=== PATIENT | male | born 1955 ===

== ENCOUNTER 2024-11-21 00:42 | Outpatient (CLI) | payer OTHER, SELFPAY ==
[2024-11-21 14:51] LABS: Abs Immature Grans 0.03 10^3/uL (0.0-0.06); Absolute Basophil Count 0.06 10^3/uL (0.0-0.2); Absolute Eosinophil Count 0.08 10^3/uL (0.0-0.7); Absolute Lymphocyte Count 1.64 10^3/uL (1.2-3.4); Absolute Monocyte Count 0.77 10^3/uL (0.1-0.8); Absolute Neutrophil Count 7.06 10^3/uL (1.2-6.7); Basophils % 0.6 %; Eosinophils % 0.8 %; HCT 37.6 % (40.0-50.0); HGB 12.2 g/dL (13.5-17.5); Immature Grans % 0.3 %; MCH 24.9 pg (27.0-33.0); MCHC 32.4 % (32.0-36.0); MCV 77 fL (80-95); MPV 9.5 fL (8.0-11.0); Neutrophils % 73.3 %; Platelet Count 296 10^3/uL (130-400); RDW 15.9 % (11.8-14.1); RDW-SD 43.7 fL; WBC 9.64 10^3/uL (4.4-10.8)
[2024-11-21 15:07] LABS: ALT 23 U/L (16-63); AST 18 U/L (15-37); Albumin 3.9 g/dL (3.4-5.0); Alkaline Phosphatase 124 U/L (46-116); Anion Gap 7.2 mmol/L (3-11); BUN 18 mg/dL (7-18); Bilirubin, Total 0.4 mg/dL (0.2-1.0); CO2 31.8 mmol/L (21.0-32.0); CREATININE 0.8 mg/dL (0.70-1.30); Calcium 9.4 mg/dL (8.5-10.1); Chloride 104 mmol/L (98-107); Estimated GFR 95.21 (mL/min/1.73m2); Glucose 100 mg/dL (74-106); Potassium 4.1 mmol/L (3.5-5.1); Sodium 143 mmol/L (136-145)
== END 2024-11-21 00:43 | disposition home or self-care (01) ==
LOC: LBO 00:42
PROVIDERS: PCP Internal Medicine; Visit Provider Internal Medicine Medical Oncology
DX: C15.5 Malignant neoplasm of lower third of esophagus (principal)
CPT/HCPCS: 36415; 80053; 83735; 85025

== ENCOUNTER 2024-11-29 01:53 | Outpatient (CLI) | payer OTHER, SELFPAY ==
[2024-11-29 10:12] LABS: Abs Immature Grans 0.07 10^3/uL (0.0-0.06); Absolute Basophil Count 0.04 10^3/uL (0.0-0.2); Absolute Eosinophil Count 0.09 10^3/uL (0.0-0.7); Absolute Lymphocyte Count 0.96 10^3/uL (1.2-3.4); Absolute Monocyte Count 0.34 10^3/uL (0.1-0.8); Absolute Neutrophil Count 5.58 10^3/uL (1.2-6.7); Basophils % 0.6 %; Eosinophils % 1.3 %; HGB 12.1 g/dL (13.5-17.5); Lymphocytes % 13.6 %; MCH 25.1 pg (27.0-33.0); MCHC 32.7 % (32.0-36.0); MCV 77 fL (80-95); MPV 10.1 fL (8.0-11.0); Monocytes % 4.8 %; Neutrophils % 78.7 %; Platelet Count 305 10^3/uL (130-400); RBC 4.83 10^6/uL (4.36-5.78); RDW-SD 41.1 fL; WBC 7.08 10^3/uL (4.4-10.8)
[2024-11-29 10:40] LABS: BUN 14 mg/dL (7-18); CREATININE 0.8 mg/dL (0.70-1.30); Calcium 9.8 mg/dL (8.5-10.1); Glucose 99 mg/dL (74-106)
[2024-11-29 10:41] LABS: ALT 20 U/L (16-63); AST 16 U/L (15-37); Albumin 3.8 g/dL (3.4-5.0); Alkaline Phosphatase 118 U/L (46-116); Anion Gap 5.1 mmol/L (3-11); Bilirubin, Total 0.6 mg/dL (0.2-1.0); CO2 30.9 mmol/L (21.0-32.0); Chloride 102 mmol/L (98-107); Estimated GFR 95.21 (mL/min/1.73m2); Magnesium 1.9 mg/dL (1.8-2.4); Potassium 4.4 mmol/L (3.5-5.1); Sodium 138 mmol/L (136-145); Total Protein 7.6 g/dL (6.4-8.2)
== END 2024-11-29 01:54 | disposition home or self-care (01) ==
LOC: LBO 01:53
PROVIDERS: PCP Internal Medicine; Visit Provider Internal Medicine Medical Oncology
DX: C15.5 Malignant neoplasm of lower third of esophagus (principal)
CPT/HCPCS: 36415; 80053; 83735; 85025

== ENCOUNTER 2024-12-05 04:27 | Outpatient (CLI) | payer OTHER, SELFPAY ==
[2024-12-05 07:56] LABS: Abs Immature Grans 0.04 10^3/uL (0.0-0.06); Absolute Basophil Count 0.03 10^3/uL (0.0-0.2); Absolute Eosinophil Count 0.12 10^3/uL (0.0-0.7); Absolute Lymphocyte Count 0.75 10^3/uL (1.2-3.4); Absolute Monocyte Count 0.18 10^3/uL (0.1-0.8); Basophils % 0.6 %; Eosinophils % 2.4 %; HCT 34.7 % (40.0-50.0); HGB 11.5 g/dL (13.5-17.5); Immature Grans % 0.8 %; Lymphocytes % 14.9 %; MCH 25.1 pg (27.0-33.0); MCHC 33.1 % (32.0-36.0); MCV 76 fL (80-95); MPV 9.1 fL (8.0-11.0); Monocytes % 3.6 %; Neutrophils % 77.7 %; Platelet Count 226 10^3/uL (130-400); RBC 4.59 10^6/uL (4.36-5.78); RDW 14.7 % (11.8-14.1); RDW-SD 38.7 fL; WBC 5.02 10^3/uL (4.4-10.8)
[2024-12-05 08:11] LABS: ALT 20 U/L (16-63); AST 18 U/L (15-37); Albumin 3.7 g/dL (3.4-5.0); Alkaline Phosphatase 108 U/L (46-116); Anion Gap 3.2 mmol/L (3-11); BUN 16 mg/dL (7-18); Bilirubin, Total 0.6 mg/dL (0.2-1.0); CO2 30.8 mmol/L (21.0-32.0); CREATININE 0.8 mg/dL (0.70-1.30); Calcium 9.8 mg/dL (8.5-10.1); Chloride 101 mmol/L (98-107); Estimated GFR 95.21 (mL/min/1.73m2); Glucose 127 mg/dL (74-106); Magnesium 1.9 mg/dL (1.8-2.4); Potassium 4.2 mmol/L (3.5-5.1); Sodium 135 mmol/L (136-145); Total Protein 7.4 g/dL (6.4-8.2)
== END 2024-12-05 04:28 | disposition home or self-care (01) ==
LOC: LBO 04:28
PROVIDERS: PCP Internal Medicine; Visit Provider Internal Medicine Medical Oncology
DX: C15.5 Malignant neoplasm of lower third of esophagus (principal)
CPT/HCPCS: 36415; 80053; 83735; 85025

== ENCOUNTER 2024-12-12 08:43 | Outpatient (CLI) | payer OTHER, SELFPAY ==
[2024-12-12 09:47] LABS: Abs Immature Grans 0.03 10^3/uL (0.0-0.06); Absolute Basophil Count 0.03 10^3/uL (0.0-0.2); Absolute Eosinophil Count 0.05 10^3/uL (0.0-0.7); Absolute Lymphocyte Count 0.37 10^3/uL (1.2-3.4); Absolute Monocyte Count 0.34 10^3/uL (0.1-0.8); Absolute Neutrophil Count 2.46 10^3/uL (1.2-6.7); Basophils % 0.9 %; Eosinophils % 1.5 %; HCT 32.7 % (40.0-50.0); HGB 11.1 g/dL (13.5-17.5); Immature Grans % 0.9 %; Lymphocytes % 11.3 %; MCH 25.6 pg (27.0-33.0); MCHC 33.9 % (32.0-36.0); MCV 76 fL (80-95); MPV 9.2 fL (8.0-11.0); Monocytes % 10.4 %; Platelet Count 196 10^3/uL (130-400); RBC 4.33 10^6/uL (4.36-5.78); WBC 3.28 10^3/uL (4.4-10.8)
[2024-12-12 09:58] LABS: ALT 18 U/L (16-63); AST 17 U/L (15-37); Albumin 3.5 g/dL (3.4-5.0); Alkaline Phosphatase 104 U/L (46-116); Anion Gap 5.9 mmol/L (3-11); BUN 16 mg/dL (7-18); Bilirubin, Total 0.2 mg/dL (0.2-1.0); CO2 29.1 mmol/L (21.0-32.0); CREATININE 0.7 mg/dL (0.70-1.30); Calcium 9.2 mg/dL (8.5-10.1); Chloride 101 mmol/L (98-107); Estimated GFR 99.12 (mL/min/1.73m2); Glucose 131 mg/dL (74-106); Magnesium 1.8 mg/dL (1.8-2.4); Potassium 4.1 mmol/L (3.5-5.1); Sodium 136 mmol/L (136-145); Total Protein 7.1 g/dL (6.4-8.2)
== END 2024-12-12 08:44 | disposition home or self-care (01) ==
PROVIDERS: PCP Internal Medicine; Visit Provider Internal Medicine Medical Oncology
DX: C15.5 Malignant neoplasm of lower third of esophagus (principal)
CPT/HCPCS: 36415; 80053; 83735; 85025

== ENCOUNTER 2024-12-20 02:03 | Outpatient (RCR) | payer OTHER, SELFPAY ==
[2024-12-20 09:43] LABS: Abs Immature Grans 0.01 10^3/uL (0.0-0.06); Absolute Basophil Count 0.02 10^3/uL (0.0-0.2); Absolute Eosinophil Count 0.03 10^3/uL (0.0-0.7); Absolute Lymphocyte Count 0.34 10^3/uL (1.2-3.4); Absolute Monocyte Count 0.25 10^3/uL (0.1-0.8); Absolute Neutrophil Count 2.49 10^3/uL (1.2-6.7); Basophils % 0.6 %; HCT 31.8 % (40.0-50.0); HGB 10.4 g/dL (13.5-17.5); Immature Grans % 0.3 %; Lymphocytes % 10.8 %; MCH 25.3 pg (27.0-33.0); MCHC 32.7 % (32.0-36.0); MCV 77 fL (80-95); MPV 9.4 fL (8.0-11.0); Neutrophils % 79.3 %; Nucleated RBC 0.6 % (0.0-0.3); Platelet Count 100 10^3/uL (130-400); RBC 4.11 10^6/uL (4.36-5.78); RDW 15.8 % (11.8-14.1); RDW-SD 41.3 fL; WBC 3.14 10^3/uL (4.4-10.8)
[2024-12-20] MEDS: Normal Saline Flush 10 ML SYR IVP (09:55)
[2024-12-20 10:06] LABS: ALT 20 U/L (16-63); AST 16 U/L (15-37); Albumin 3.6 g/dL (3.4-5.0); Alkaline Phosphatase 102 U/L (46-116); Anion Gap 3.2 mmol/L (3-11); BUN 18 mg/dL (7-18); Bilirubin, Total 0.2 mg/dL (0.2-1.0); CO2 31.8 mmol/L (21.0-32.0); CREATININE 0.7 mg/dL (0.70-1.30); Calcium 9.6 mg/dL (8.5-10.1); Chloride 104 mmol/L (98-107); Estimated GFR 99.12 (mL/min/1.73m2); Glucose 124 mg/dL (74-106); Magnesium 1.9 mg/dL (1.8-2.4); Potassium 4.1 mmol/L (3.5-5.1); Sodium 139 mmol/L (136-145)
== END 2024-12-24 23:59 | disposition home or self-care (01) ==
LOC: INF 02:03
PROVIDERS: PCP Internal Medicine; Visit Provider Internal Medicine Medical Oncology
DX: C15.5 Malignant neoplasm of lower third of esophagus (principal); Z45.2 Encounter for adjustment and management of vascular access device
CPT/HCPCS: 36591; 80053; 83735; 85025

== ENCOUNTER 2024-12-26 10:30 | Outpatient (CLI) | payer OTHER, SELFPAY ==
[2024-12-26 09:59] LABS: Abs Immature Grans 0.01 10^3/uL (0.0-0.06); Absolute Basophil Count 0.01 10^3/uL (0.0-0.2); Absolute Eosinophil Count 0.02 10^3/uL (0.0-0.7); Absolute Lymphocyte Count 0.36 10^3/uL (1.2-3.4); Absolute Monocyte Count 0.11 10^3/uL (0.1-0.8); Absolute Neutrophil Count 0.96 10^3/uL (1.2-6.7); Basophils % 0.7 %; Eosinophils % 1.4 %; HCT 32.1 % (40.0-50.0); HGB 10.7 g/dL (13.5-17.5); Immature Grans % 0.7 %; Lymphocytes % 24.5 %; MCH 25.4 pg (27.0-33.0); MCHC 33.3 % (32.0-36.0); MCV 76 fL (80-95); MPV 9.5 fL (8.0-11.0); Monocytes % 7.5 %; Neutrophils % 65.2 %; RBC 4.22 10^6/uL (4.36-5.78); RDW 15.7 % (11.8-14.1); RDW-SD 41.3 fL
[2024-12-26 10:15] LABS: Diff Comment Diff Reviewed; Platelet Count 74 10^3/uL (130-400); RBC Morphology Normal
[2024-12-26 10:17] LABS: ALT 18 U/L (16-63); AST 18 U/L (15-37); Albumin 3.6 g/dL (3.4-5.0); Alkaline Phosphatase 97 U/L (46-116); BUN 21 mg/dL (7-18); Bilirubin, Total 0.2 mg/dL (0.2-1.0); CREATININE 0.6 mg/dL (0.70-1.30); Calcium 9.3 mg/dL (8.5-10.1); Chloride 100 mmol/L (98-107); Estimated GFR 103.85 (mL/min/1.73m2); Glucose 136 mg/dL (74-106); Magnesium 1.8 mg/dL (1.8-2.4); Potassium 4.2 mmol/L (3.5-5.1); Sodium 136 mmol/L (136-145); Total Protein 7.2 g/dL (6.4-8.2)
[2024-12-26 10:18] LABS: WBC 1.47 10^3/uL (4.4-10.8)
== END 2024-12-26 10:31 | disposition home or self-care (01) ==
PROVIDERS: PCP Internal Medicine; Visit Provider Internal Medicine Medical Oncology
DX: C15.5 Malignant neoplasm of lower third of esophagus (principal)
CPT/HCPCS: 36415; 80053; 83735; 85025

== ENCOUNTER 2025-01-23 01:53 | Outpatient (RCR) | payer OTHER, SELFPAY ==
[2025-01-23] MEDS: Normal Saline Flush 10 ML SYR IVP (13:23)
[2025-01-23 13:27] LABS: Abs Immature Grans 0.03 10^3/uL (0.0-0.06); Absolute Basophil Count 0.04 10^3/uL (0.0-0.2); Absolute Eosinophil Count 0.08 10^3/uL (0.0-0.7); Absolute Lymphocyte Count 0.68 10^3/uL (1.2-3.4); Absolute Monocyte Count 1.17 10^3/uL (0.1-0.8); Absolute Neutrophil Count 3.85 10^3/uL (1.2-6.7); Basophils % 0.7 %; Eosinophils % 1.4 %; HCT 33.5 % (40.0-50.0); HGB 11.1 g/dL (13.5-17.5); Immature Grans % 0.5 %; Lymphocytes % 11.6 %; MCH 25.7 pg (27.0-33.0); MCHC 33.1 % (32.0-36.0); MCV 78 fL (80-95); MPV 9.7 fL (8.0-11.0); Neutrophils % 65.8 %; Platelet Count 283 10^3/uL (130-400); RBC 4.32 10^6/uL (4.36-5.78); RDW-SD 53.7 fL; WBC 5.85 10^3/uL (4.4-10.8)
[2025-01-23 13:53] LABS: ALT 33 U/L (16-63); AST 23 U/L (15-37); Albumin 3.4 g/dL (3.4-5.0); Alkaline Phosphatase 130 U/L (46-116); Anion Gap 6.9 mmol/L (3-11); BUN 19 mg/dL (7-18); Bilirubin, Total 0.1 mg/dL (0.2-1.0); CO2 30.1 mmol/L (21.0-32.0); CREATININE 0.6 mg/dL (0.70-1.30); Calcium 9.5 mg/dL (8.5-10.1); Chloride 103 mmol/L (98-107); Estimated GFR 103.85 (mL/min/1.73m2); Glucose 65 mg/dL (74-106); Magnesium 2.1 mg/dL (1.8-2.4); Sodium 140 mmol/L (136-145); Total Protein 7.6 g/dL (6.4-8.2)
== END 2025-01-23 23:59 | disposition home or self-care (01) ==
LOC: INF 01:53
PROVIDERS: PCP Internal Medicine; Visit Provider Internal Medicine Medical Oncology
DX: C15.5 Malignant neoplasm of lower third of esophagus (principal); Z45.2 Encounter for adjustment and management of vascular access device
CPT/HCPCS: 36591; 80053; 83735; 85025

== ENCOUNTER 2025-02-21 12:00 | Outpatient (RCR) | payer OTHER, SELFPAY ==
[2025-02-06 09:53] LABS: Abs Immature Grans 0.02 10^3/uL (0.0-0.06); HCT 35.0 % (40.0-50.0); HGB 11.6 g/dL (13.5-17.5); Immature Grans % 0.3 %; MCH 25.6 pg (27.0-33.0); MCHC 33.1 % (32.0-36.0); MCV 77 fL (80-95); MPV 10.0 fL (8.0-11.0); Platelet Count 219 10^3/uL (130-400); RBC 4.53 10^6/uL (4.36-5.78); RDW 19.7 % (11.8-14.1); RDW-SD 53.3 fL; WBC 6.74 10^3/uL (4.4-10.8)
[2025-02-06] MEDS: Normal Saline Flush 10 ML SYR IVP (10:05)
[2025-02-06 10:20] LABS: ALT 36 U/L (16-63); AST 24 U/L (15-37); Albumin 3.4 g/dL (3.4-5.0); Alkaline Phosphatase 141 U/L (46-116); Anion Gap 8.6 mmol/L (3-11); BUN 21 mg/dL (7-18); Bilirubin, Total 0.3 mg/dL (0.2-1.0); CO2 29.4 mmol/L (21.0-32.0); Calcium 9.6 mg/dL (8.5-10.1); Chloride 100 mmol/L (98-107); Estimated GFR 95.21 (mL/min/1.73m2); Glucose 116 mg/dL (74-106); Magnesium 2.0 mg/dL (1.8-2.4); Potassium 3.9 mmol/L (3.5-5.1); Sodium 138 mmol/L (136-145); Total Protein 7.7 g/dL (6.4-8.2)
[2025-02-21] MEDS: Normal Saline Flush 10 ML SYR IVP (12:12)
[2025-02-21 12:33] LABS: Abs Immature Grans 0.02 10^3/uL (0.0-0.06); HCT 35.3 % (40.0-50.0); HGB 11.7 g/dL (13.5-17.5); Immature Grans % 0.3 %; MCH 25.9 pg (27.0-33.0); MCHC 33.1 % (32.0-36.0); MCV 78 fL (80-95); MPV 9.4 fL (8.0-11.0); Platelet Count 209 10^3/uL (130-400); RBC 4.51 10^6/uL (4.36-5.78); RDW 19.8 % (11.8-14.1); RDW-SD 54.8 fL; WBC 6.12 10^3/uL (4.4-10.8)
[2025-02-21 12:56] LABS: ALT 28 U/L (16-63); AST 22 U/L (15-37); Albumin 3.2 g/dL (3.4-5.0); Alkaline Phosphatase 145 U/L (46-116); Anion Gap 5.9 mmol/L (3-11); BUN 20 mg/dL (7-18); Bilirubin, Total 0.3 mg/dL (0.2-1.0); CO2 31.1 mmol/L (21.0-32.0); Calcium 9.3 mg/dL (8.5-10.1); Chloride 101 mmol/L (98-107); Estimated GFR 99.12 (mL/min/1.73m2); Glucose 153 mg/dL (74-106); Magnesium 2.1 mg/dL (1.8-2.4); Potassium 3.9 mmol/L (3.5-5.1); Sodium 138 mmol/L (136-145); Total Protein 7.3 g/dL (6.4-8.2)
== END 2025-02-23 23:59 | disposition home or self-care (01) ==
LOC: INF 12:00
PROVIDERS: PCP Internal Medicine; Visit Provider Internal Medicine Medical Oncology
DX: Z45.2 Encounter for adjustment and management of vascular access device (principal); C15.5 Malignant neoplasm of lower third of esophagus
CPT/HCPCS: 36591; 80053; 83735; 85025

== ENCOUNTER 2025-05-04 00:40 | Outpatient (RCR) | payer OTHER, SELFPAY ==
[2025-05-04] MEDS: Normal Saline Flush 10 ML SYR IVP (11:03)
[2025-05-04 11:08] LABS: Abs Immature Grans 0.02 10^3/uL (0.0-0.06); HCT 39.7 % (40.0-50.0); HGB 13.2 g/dL (13.5-17.5); Immature Grans % 0.4 %; MCH 26.8 pg (27.0-33.0); MCHC 33.2 % (32.0-36.0); MCV 81 fL (80-95); MPV 9.8 fL (8.0-11.0); Platelet Count 208 10^3/uL (130-400); RBC 4.93 10^6/uL (4.36-5.78); RDW 14.1 % (11.8-14.1); RDW-SD 41.1 fL; WBC 5.13 10^3/uL (4.4-10.8)
[2025-05-04 11:26] LABS: ALT 25 U/L (16-63); AST 19 U/L (15-37); Albumin 3.3 g/dL (3.4-5.0); Alkaline Phosphatase 145 U/L (46-116); Anion Gap 7.6 mmol/L (3-11); BUN 17 mg/dL (7-18); Bilirubin, Total 0.2 mg/dL (0.2-1.0); CO2 29.4 mmol/L (21.0-32.0); Calcium 9.3 mg/dL (8.5-10.1); Chloride 104 mmol/L (98-107); Glucose 163 mg/dL (74-106); Magnesium 2.0 mg/dL (1.8-2.4); Potassium 3.7 mmol/L (3.5-5.1); Sodium 141 mmol/L (136-145); Total Protein 7.3 g/dL (6.4-8.2)
[2025-05-04 19:35] LABS: CEA 2.6 ng/mL (See Note)
[2025-05-09 20:51] LABS: DPYD Phenotype Normal metabolizer; DPYD Total Activity Score 2
== END 2025-05-26 23:59 | disposition home or self-care (01) ==
LOC: INF 00:40
PROVIDERS: PCP Internal Medicine; Visit Provider Internal Medicine Medical Oncology
DX: C15.5 Malignant neoplasm of lower third of esophagus (principal); Z79.899 Other long term (current) drug therapy; Z45.2 Encounter for adjustment and management of vascular access device
CPT/HCPCS: 36591; 80053; 81232; 82378; 83735; 85025

== ENCOUNTER 2025-06-13 03:09 | Outpatient (RCR) | payer OTHER, SELFPAY ==
[2025-05-30] MEDS: Normal Saline Flush 10 ML SYR IVP (08:01)
[2025-05-30 08:25] LABS: Abs Immature Grans 0.02 10^3/uL (0.0-0.06); HCT 37.7 % (40.0-50.0); HGB 12.3 g/dL (13.5-17.5); Immature Grans % 0.5 %; MCH 25.3 pg (27.0-33.0); MCHC 32.6 % (32.0-36.0); MCV 78 fL (80-95); MPV 9.6 fL (8.0-11.0); Platelet Count 160 10^3/uL (130-400); RBC 4.86 10^6/uL (4.36-5.78); RDW 14.6 % (11.8-14.1); RDW-SD 39.5 fL; WBC 4.08 10^3/uL (4.4-10.8)
[2025-05-30 08:39] LABS: ALT 25 U/L (16-63); AST 19 U/L (15-37); Albumin 3.3 g/dL (3.4-5.0); Alkaline Phosphatase 140 U/L (46-116); Anion Gap 7.3 mmol/L (3-11); BUN 17 mg/dL (7-18); Bilirubin, Total 0.4 mg/dL (0.2-1.0); CO2 29.7 mmol/L (21.0-32.0); Calcium 9.0 mg/dL (8.5-10.1); Chloride 103 mmol/L (98-107); Estimated GFR 95.21 (mL/min/1.73m2); Glucose 77 mg/dL (74-106); Magnesium 2.0 mg/dL (1.8-2.4); Potassium 4.1 mmol/L (3.5-5.1); Sodium 140 mmol/L (136-145); Total Protein 7.2 g/dL (6.4-8.2)
[2025-05-30 18:49] LABS: CEA 2.9 ng/mL (See Note)
[2025-06-13 08:48] LABS: Abs Immature Grans 0.03 10^3/uL (0.0-0.06); HCT 35.9 % (40.0-50.0); HGB 12.1 g/dL (13.5-17.5); Immature Grans % 0.5 %; MCH 25.9 pg (27.0-33.0); MCHC 33.7 % (32.0-36.0); MCV 77 fL (80-95); MPV 10.2 fL (8.0-11.0); Platelet Count 165 10^3/uL (130-400); RBC 4.67 10^6/uL (4.36-5.78); RDW 16.0 % (11.8-14.1); RDW-SD 41.0 fL; WBC 5.94 10^3/uL (4.4-10.8)
[2025-06-13] MEDS: Normal Saline Flush 10 ML SYR IVP (09:12)
[2025-06-13 09:25] LABS: Magnesium 2.0 mg/dL (1.6-2.6)
[2025-06-13 09:26] LABS: ALT 26 U/L (10-49); AST 26 U/L (<34); Albumin 3.4 g/dL (3.4-5.0); Alkaline Phosphatase 101 U/L (46-116); Anion Gap 7 mmol/L (3-11); BUN 15 mg/dL (9-23); Bilirubin, Total 0.40 mg/dL (0.2-1.2); CO2 29.0 mmol/L (20.0-31.0); Calcium 8.8 mg/dL (8.3-10.6); Chloride 103 mmol/L (98-107); Glucose 86 mg/dL (74-106); Potassium 4.2 mmol/L (3.5-5.1); Sodium 139 mmol/L (136-145); Total Protein 5.6 g/dL (5.7-8.2)
== END 2025-06-25 23:59 | disposition home or self-care (01) ==
LOC: INF 03:09
PROVIDERS: PCP Internal Medicine; Visit Provider Internal Medicine Medical Oncology
DX: Z45.2 Encounter for adjustment and management of vascular access device (principal); C15.5 Malignant neoplasm of lower third of esophagus; Z79.899 Other long term (current) drug therapy
CPT/HCPCS: 36591; 80053; 81232; 82378; 83735; 85025

== ENCOUNTER 2025-07-10 00:36 | Outpatient (RCR) | payer OTHER, SELFPAY ==
[2025-06-27 08:20] LABS: Abs Immature Grans 0.02 10^3/uL (0.0-0.06); HCT 36.0 % (40.0-50.0); HGB 11.9 g/dL (13.5-17.5); Immature Grans % 0.4 %; MCH 26.3 pg (27.0-33.0); MCHC 33.1 % (32.0-36.0); MCV 80 fL (80-95); MPV 9.4 fL (8.0-11.0); Platelet Count 158 10^3/uL (130-400); RBC 4.53 10^6/uL (4.36-5.78); RDW 17.1 % (11.8-14.1); RDW-SD 47.0 fL; WBC 5.15 10^3/uL (4.4-10.8)
[2025-06-27 08:40] LABS: ALT 33 U/L (10-49); AST 25 U/L (<34); Albumin 3.6 g/dL (3.2-5.0); Alkaline Phosphatase 159 U/L (46-116); Anion Gap 6.5 mmol/L (3-11); BUN 14 mg/dL (9-23); Bilirubin, Total 0.30 mg/dL (0.2-1.2); CO2 30.5 mmol/L (20.0-31.0); Calcium 9.2 mg/dL (8.3-10.6); Chloride 104 mmol/L (98-107); Glucose 88 mg/dL (74-106); Magnesium 2.0 mg/dL (1.6-2.6); Potassium 4.3 mmol/L (3.5-5.1); Sodium 141 mmol/L (136-145); Total Protein 6.2 g/dL (5.7-8.2)
[2025-06-27] MEDS: Normal Saline Flush 10 ML SYR IVP (09:28)
[2025-07-10 08:12] LABS: Abs Immature Grans 0.02 10^3/uL (0.0-0.06); HCT 34.2 % (40.0-50.0); HGB 11.5 g/dL (13.5-17.5); Immature Grans % 0.4 %; MCH 26.4 pg (27.0-33.0); MCHC 33.6 % (32.0-36.0); MCV 78 fL (80-95); MPV 9.1 fL (8.0-11.0); Platelet Count 133 10^3/uL (130-400); RBC 4.36 10^6/uL (4.36-5.78); RDW 17.4 % (11.8-14.1); RDW-SD 48.0 fL; WBC 5.32 10^3/uL (4.4-10.8)
[2025-07-10 08:34] LABS: Magnesium 2.0 mg/dL (1.6-2.6)
[2025-07-10 08:36] LABS: ALT 25 U/L (10-49); AST 28 U/L (<34); Albumin 3.8 g/dL (3.2-5.0); Alkaline Phosphatase 162 U/L (46-116); Anion Gap 7.2 mmol/L (3-11); BUN 15 mg/dL (9-23); Bilirubin, Total 0.3 mg/dL (0.2-1.2); CO2 29.8 mmol/L (20.0-31.0); Calcium 9.1 mg/dL (8.3-10.6); Chloride 103 mmol/L (98-107); Glucose 85 mg/dL (74-106); Potassium 4.1 mmol/L (3.5-5.1); Sodium 140 mmol/L (136-145); Total Protein 6.6 g/dL (5.7-8.2)
[2025-07-10 18:28] LABS: CEA 2.8 ng/mL (See Note)
== END 2025-07-26 23:59 | disposition home or self-care (01) ==
LOC: INF 00:36
PROVIDERS: Nurse Practitioner Family; PCP Internal Medicine; Visit Provider Internal Medicine Medical Oncology
DX: Z45.2 Encounter for adjustment and management of vascular access device (principal); C15.5 Malignant neoplasm of lower third of esophagus
CPT/HCPCS: 36591; 80053; 82378; 83735; 84100; 85025